=== PATIENT | female | born 1970 | race Hispanic/Latino ===

== ENCOUNTER 2023-03-16 01:50 | Emergency (ER) | payer OTHER, SELFPAY ==
--- NOTE | ~2023-03-16 | CT_ITS ---
EXAMINATION: CT abdomen pelvis wo con DATE: 03/16/2023 02:49 INDICATION: Right flank pain TECHNIQUE: Computed tomography (CT) of the abdomen and pelvis was performed without intravenous contr ast. Automated exposure control and iterative reconstruction technique were employed. Exam dose: 198 .33 mGy-cm total exam DLP. COMPARISON: None. FINDINGS: The lung bases are clear. Normal heart size. No pericardial or pleural effusion. The liver, gallbladder, bile ducts, pancreas, pancreatic duct, spleen and adrenal glands are unremark able. There is an approximately 4 x 7.1 mm calculus with attenuation of 760 Hounsfield units situated at th e right ureterovesical junction, with prominent right hydroureteronephrosis. No renal mass lesion is evident on this limited noncontrast examination. There is right nephromegaly and mild perinephric fat stranding on the right. Approximately 2.5 mm upper pole and 2.3 x 3.9 mm mid right renal nonobstructing calculi and 2.1 x 4 m m lower pole nonobstructing left calculus are noted. No left ureteral calculus or left hydroureterone phrosis. The uterus and adnexal areas are unremarkable. Normal appendix. No bowel obstruction, bowel wall thickening, pneumatosis or intraperitoneal free air . Normal caliber of the abdominal aorta. No intraperitoneal or retroperitoneal or pelvic mass lesion or adenopathy or ascites. 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 The skeletal structures are oth erwise unremarkable. IMPRESSION: 4 x 7.1 mm obstructing right ureterovesical junction calculus with prominent right hydro ureteronephrosis Bilateral nonobstructive nephrolithiasis Bilateral L5 pars interarticularis defects Reviewed, dictated and finalized at [facility] Reviewed, dictated and finalized at [facility] IMPRESSION: 4 x 7.1 mm obstructing right ureterovesical junction calculus with prominent right hydroureteronephrosis Bilateral nonobstructive nephrolithiasis Bilateral L5 pars interarticularis defects
[2023-03-16 01:52] VITALS: BP 117/82; PULSE 62; RESP 16; TEMP 36.4; O2SAT 100
--- NOTE | 2023-03-16 02:27 | ED.BACK ---
HPI - Back Pain/Injury General Chief Complaint: Back Pain/Injury Stated Complaint: R lower back pain Time Seen by Provider: 03/16/23 02:13 Source: patient Mode of arrival: ambulatory Limitations: no limitations History of Present Illness HPI Narrative: 52-year-old female presenting with right flank pain starting about 4 hours ago. Also having some decreased urination and urinating frequently. No dysuria. Pain is always present but gets much worse for a few minutes and gets better. Does not radiate. Also has nausea and several episodes of vomiting in the last few hours. Nonbloody nonbilious emesis. All other symptoms and complaints are negative as per ROS. Related Data Allergies Allergy/AdvReac Type Severity Reaction Status Date / Time No Known Allergies Allergy Verified 03/16/23 02:37 Review of Systems Review of Systems: All systems reviewed & are unremarkable except as noted in HPI and below Exam Narrative: Constitutional: Generally well appearing, no acute distress But uncomfortable in pain Head: Atraumatic, no deformities. Eyes: Pupils equal, round, and reactive to light. Neck: Supple, no tracheal deviation, no JVD. ENMT: Mucous membranes moist Cardiovascular: S1, S2 auscultated. No murmurs, rubs, or gallops. No S3/S4. Normal Distal pulses. No peripheral edema. Respiratory: Lung sounds equal. No wheezes, rales, or rhonchi. Gastrointestinal: Abdomen was soft and non-tender. Non-distended. No rebound or guarding. CVA tenderness on the right Genitourinary: Deferred Musculoskeletal: Normal muscle tone and bulk. No obvious deformities or tenderness over extremities. Skin: No rashes. Neurological: Strength 5/5 in extremities. Cranial nerves I-XII grossly intact. Distal sensation intact. Mental Status: Awake, alert and oriented x3. Follows commands Course Vital Signs Vital signs: Vital Signs Temperature 36.4 C 03/16/23 01:52 Pulse Rate 62 03/16/23 01:52 Respiratory Rate 16 03/16/23 01:52 Blood Pressure 117/82 03/16/23 01:52 Pulse Oximetry 100 03/16/23 01:52 Oxygen Delivery Room Air 03/16/23 01:52 Temperature 36.4 C 03/16/23 01:52 Pulse Rate 62 03/16/23 05:34 Respiratory Rate 15 03/16/23 05:34 Blood Pressure 146/68 H 03/16/23 05:34 Pulse Oximetry 100 03/16/23 05:34 Oxygen Delivery Room Air 03/16/23 01:52 MDM - Back Pain/Injury MDM Narrative Medical decision making narrative: 52-year-old female presenting with right flank pain starting earlier in the day. Episodic . Also some urinary symptoms as well. On exam she has stable vital signs, generally well appearing but does appear in pain. Says highly suspicious for kidney stone. Potentially could be UTI as well. CT abdomen pelvis without contrast obtained. Basic labs and urinalysis obtained. Labs imaging reviewed and interpreted by myself. CT shows a 7 mm stone on the right UVJ with hydronephrosis. Renal function is normal. No UTI on urinalysis. Reassess patient and given dose of Toradol, feeling a lot better. Will discharge with Toradol and Zofran. Instructed return for any new or worsening symptoms including worsening vomiting, worsening pain. Patient is agreeable to plan. Pt feeling improved and would like to go home at this point. Return precautions were given to the patient include any new or worsening symptoms or development of and not limited to any chest pain, shortness of breath, lightheadedness, abdominal pain, fevers, chills. Patient understands and agrees. They are to follow-up with her PCP. All questions were answered. Medical Records Attestation: I reviewed the patient's medical records. Lab Data Attestation: I reviewed the patient's lab results. 03/16/23 02:37 03/16/23 02:37 Labs: Lab Results 03/16/23 Range/Units 02:37 WBC 11.9 H (4.5-10.0) K/mm3 RBC 4.56 (4.2-5.4) M/mm3 Hgb 12.7 (12.0-15.0) g/dL Hct 38.5 (37.0-47.0) % MCV 84.4 (8
[2023-03-16] MEDS: MORPHINE SULFATE (*CRX) 4 MG/ML INJ IV PUSH (02:38)
[2023-03-16] MEDS: SODIUM CHLORIDE 0.9% IV 1,000 ML 999 ML IV CONT (02:38)
[2023-03-16] MEDS: ONDANSETRON INJ 4 MG/2 ML VIAL IV PUSH ×2 (02:38→05:53)
[2023-03-16 02:49] LABS: Basophils Absolute Auto 0.1 K/mm3 (0.0-0.1); Basophils Percent Auto 0.5 % (0.2-1.2); Eosinophils Absolute Auto 0.1 K/mm3 (0-0.3); Eosinophils Percent Auto 0.4 % (0-4.4); Hematocrit 38.5 % (37.0-47.0); Hemoglobin 12.7 g/dL (12.0-15.0); Immature Granulocyte Absolute 0.05 K/mm3 (0.00-0.031); Immature Granulocyte Percent A 0.4 % (0-0.5); Lymphocytes Percent Auto 11.8 % (18.3-44.2); Mean Corpuscular Hemoglobin 27.9 pg (26-34); Mean Corpuscular Volume 84.4 fl (80-100); Mean Platelet Volume 10.5 fl (7.4-10.4); Monocytes Absolute Auto 0.4 K/mm3 (0.1-0.6); Monocytes Percent Auto 3.5 % (2.6-8.5); Neutrophils Absolute Auto 9.9 K/mm3 (1.3-6.7); Neutrophils Percent Auto 83.4 % (45.5-73.1); Platelet Count Result 196 k/mm3 (150-375); Red Blood Count 4.56 M/mm3 (4.2-5.4); Red Cell Distribution Width 13.2 % (11.5-14.5); White Blood Count 11.9 K/mm3 (4.5-10.0)
[2023-03-16 02:52] LABS: Bacteria Urine None Seen /hpf; Non Pathogenic Casts 0-2; RBC Urine 21-50 /hpf (0-2); Squamous Epithelial Cell Urine None seen /hpf (Few); WBC Urine 0-5 /hpf
[2023-03-16 03:02] LABS: Alanine Aminotransferase 27 U/L (6-35); Albumin Level 4.9 g/dL (3.5-5.1); Alkaline Phosphatase 111 U/L (38-126); Anion Gap 9 mmol/L (8-16); Aspartate Amino Transferase 31 U/L (14-36); Blood Urea Nitrogen 19 mg/dL (7-17); Calcium 9.6 mg/dL (8.4-10.2); Carbon Dioxide 28 mmol/L (22-30); Chloride 102 mmol/L (98-107); Estimated CRCL calculation 57 ml/min; Estimated Glomerular Filt Rate > 60; Glucose 141 mg/dL (65-110); Potassium 3.8 mmol/L (3.4-5.0); Sodium 139 mmol/L (137-145)
[2023-03-16 03:24] LABS: Appearance Urine Turbid (Clear); Bilirubin Urine Negative (Negative); Blood Urine 1+ (Negative); Color Urine Yellow (Yellow); Glucose Urine UA Negative (Negative); Ketones Urine Negative (Negative); Leukocyte Esterase Ur Negative LEU/UL (Negative); Nitrate Urine Negative (Negative); Protein Urine Trace mg/dL (Negative); Specific Grav Ur 1.022 (1.001-1.035)
[2023-03-16 03:26] VITALS: BP 152/86; PULSE 68; RESP 15; O2SAT 100
[2023-03-16 03:29] LABS: Add Urine Microscopic? YES
[2023-03-16] MEDS: KETOROLAC 15 MG/ML VIAL (*BKC) IV PUSH (05:28)
[2023-03-16 05:34] VITALS: BP 146/68; PULSE 62; RESP 15; O2SAT 100
[2023-03-16 06:51] VITALS: PULSE 78; RESP 16; O2SAT 98
== END 2023-03-16 06:52 | disposition home or self-care (01) ==
PROVIDERS: Emergency Provider Emergency Medicine
DX: N13.2 Hydronephrosis with renal and ureteral calculous obstruction (principal)
CPT/HCPCS: 36415; 74176; 80053; 81001; 81025; 85025; 96361; 96374; 96375; 96376; 99284; J1885; J2270; J2405; J7030